=== PATIENT | female | born 1975 | race Caucasian/White ===

== ENCOUNTER 2017-12-13 18:51 | Emergency (ER) | payer BC ==
[2017-12-13] MEDS ORDERED: ASPIRIN 81 MG CHEWABLE TABLET PO ONE (19:10)
--- NOTE | 2017-12-13 19:19 | Emergency Department Record ---
History of Present Illness - General Chief complaint: Pain Stated complaint: LT SIDE RIB PAIN,NOT FEELING HERSELF Time Seen by Provider: 12/13/17 18:59 Source: Patient Mode of Arrival: Ambulatory Limitations: No limitations - History of Present Illness Initial comments: pt developed l lower chest pain that wraps around to her mumtaz and pain in her jaw 20 min ago. it was a 6 out of 10 but is now a 2. she had no sob or sweating but did have some nausea. time has made it better. she also had some reflux at the same time which she has a hx of. she has no cardiac risk factors andhas not been on a long trip Onset/Timin -: Minutes(s) Location: Left History of Same: No Improves with: Nothing Worsens with: Nothing Associated Symptoms: Denies other symptoms - Related Data Allergies Allergy/AdvReac Type Severity Reaction Status Date / Time hydromorphone HCl Allergy Severe ANAPHYLAXIS Verified 12/13/17 18:58 [From Dilaudid] morphine Allergy Severe ANAPHYLAXIS Verified 12/13/17 18:58 Travel Screening - Travel/Exposure Within Last 30 Days Have you traveled within the last 30 days?: No Review of Systems Reviewed: No additional complaints except as noted below Constitutional: Reports: As per HPI. Denies: Chills, Fever, Malaise, Night sweats, Weakness, Weight change Eyes: Reports: As per HPI. Denies: Eye discharge, Eye pain, Photophobia, Vision change ENT: Reports: As per HPI. Denies: Congestion, Dental pain, Ear pain, Epistaxis , Hearing loss, Throat pain Respiratory: Reports: As per HPI. Denies: Cough, Dyspnea, Hemoptysis, Stridor, Wheezes Cardiovascular: Reports: As per HPI, Chest pain. Denies: Arrhythmia, Dyspnea on exertion, Edema, Murmurs, Orthopnea, Palpitations, Paroxysmal nocturnal dyspnea, Rheumatic Fever, Syncope Endocrine: Reports: As per HPI. Denies: Fatigue, Heat or cold intolerance, Polydipsia, Polyuria Gastrointestinal: Reports: As per HPI, Nausea. Denies: Abdominal pain, Constipation, Diarrhea, Hematemesis, Hematochezia, Melena, Vomiting Genitourinary: Reports: As per HPI. Denies: Abnormal menses, Discharge, Dyspareunia, Dysuria, Frequency, Hematuria, Incontinence, Retention, Urgency Musculoskeletal: Reports: As per HPI. Denies: Arthralgia, Back pain, Gout, Joint swelling, Myalgia, Neck pain Skin: Reports: As per HPI. Denies: Bruising, Change in color, Change in hair/ nails, Lesions, Pruritus, Rash Neurological: Reports: As per HPI. Denies: Abnormal gait, Confusion, Headache, Numbness, Paresthesias, Seizure, Tingling, Tremors, Vertigo, Weakness Psychiatric: Reports: As per HPI. Denies: Anxiety, Auditory hallucinations, Depression, Homicidal thoughts, Suicidal thoughts, Visual hallucinations Hematological/Lymphatic: Reports: As per HPI. Denies: Anemia, Blood Clots, Easy bleeding, Easy bruising, Swollen glands Past Medical History - SOCIAL HISTORY Smoking Status: Never smoker Alcohol Use: Occasional Drug Use: None - RESPIRATORY Hx Respiratory Disorders: Yes Comment:: allergies - CARDIOVASCULAR Hx Cardio Disorders: No - NEURO Hx Neuro Disorders: No - GI Hx GI Disorders: Yes Comment:: Gallstones - Hx Genitourinary Disorders: No - ENDOCRINE Hx Endocrine Disorders: No - MUSCULOSKELETAL Hx Musculoskeletal Disorders: No - PSYCH Hx Psych Problems: Yes Comment:: PTSD - HEMATOLOGY/ONCOLOGY Hx Hematology/Oncology Disorders: No Family Medical History Any Significant Family History?: No Physical Exam - General General Appearance: Alert, Oriented x3, Cooperative, No acute distress - Head Head exam: Normal inspection - Eye Eye exam: Normal appearance, PERRL, EOMI Pupils: Normal accommodation - ENT ENT exam: Normal exam, Mucous membranes moist, Normal external ear exam, Normal orophraynx Ear exam: Normal external inspection. negative: External canal tenderness Nasal Exam: Normal inspection. negative: Discharge, Sinus tenderness Mouth exam: Normal external inspection, Tongue normal Teeth exam: Normal inspection. negative: Dental caries Throat exam: Normal inspection. negative: Tonsillar erythema, Tonsillar exudate - Neck Neck exam: Normal inspection, Full ROM. negative: Tenderness - Respiratory Respiratory exam: Normal lung sounds bilaterally. negative: Respiratory distress - Cardiovascular Cardiovascular Exam: Regular rate, Normal rhythm, Normal heart sounds - GI/Abdominal GI/Abdominal exam: Soft, Normal bowel sounds. negative: Tenderness - Rectal Rectal exam: Deferred - exam: Deferred - Extremities Extremities exam: Normal inspection, Full ROM, Normal capillary refill. negative: Tenderness - Back Back exam: Reports: Normal inspection, Full ROM. Denies: Muscle spasm, Rash noted, Tenderness - Neurological Neurological exam: Alert, CN II-XII intact, Normal gait, Oriented X3 - Psychiatric Psychiatric exam: Normal affect, Normal mood - Skin Skin exam: Dry, Intact, Normal color, Warm Course Vital Signs 12/13/17 18:54 Temperature 98.0 F Pulse Rate 67 Respiratory 20 Rate Blood Pressure 115/74 Pulse Ox 99 - Reevaluation(s) Reevaluation #1: 12/13/17 23:41 pts pain resolved. she felt much better. she refused to be admitted to the hospital but agreed to a 4 hr troponin Medical Decision Making - Lab Data Result diagrams: 12/13/17 19:20 12/13/17 19:20 Disposition Disposition: Discharge Clinical Impression: Chest pain Qualifiers: Chest pain type: unspecified Qualified Code(s): R07.9 - Chest pain, unspecified Disposition: Home, Self-Care Condition: (1) Good Instructions: Chest Pain (ED) Additional Instructions: follow up with family doctor tomorrow and have a stess test. return sooner if worse. take aspirin 81mg a day Forms: Patient Portal Access Quality - Quality Measures Quality Measures: N/A - Blood Pressure Screening Does Patient Have Any of the Following: No Blood Pressure Classification: Normal BP Reading Systolic Measurement: 115 Diastolic Measurement: 74 Screening for High Blood Pressure: < Normal BP, F/U Not Required > [G8783]
[2017-12-13 19:27] LABS: BASO % 0.3 % (0-6); EOS % 3.6 % (0-6); GRAN % 52.6 % (47-80); HEMATOCRIT 38.5 % (35.0-47.0); HEMOGLOBIN 12.6 gm/dl (11.6-16.0); LYMPH % 34.2 % (16-45); MEAN CELL VOLUME 93.2 fl (81-97); MEAN CORPUSCULAR HEMOGLOBIN 30.5 pg (27-33); MEAN CORPUSCULAR HGB CONC 32.7 g/dl (32-36); MEAN PLATELET VOLUME 9.3 fl (7.4-10.4); MONO % 9.3 % (0-9); PLATELET COUNT 254 K/uL (130-400); RED BLOOD COUNT 4.13 M/uL (3.80-5.40); RED CELL DISTRIBUTION WIDTH 13.1 % (11.5-14.5)
[2017-12-13 19:40] LABS: BLOOD UREA NITROGEN 13 mg/dL (6-20); CREATININE 0.8 mg/dL (0.5-0.9); EST GLOMERULAR FILTRATION RATE > 60 mL/min
[2017-12-13 19:43] LABS: GLUCOSE,RANDOM 100 mg/dL (74-109)
[2017-12-13 19:46] LABS: CREATINE PHOSPHOKINASE 140 U/L (26-192)
[2017-12-13 19:48] LABS: CKMB 5.3 ng/mL (<3.77)
--- NOTE | 2017-12-15 08:59 | CT ANGIOGRAM REPORT ---
EXAM: CTA OF THE CHEST WITH CONTRAST WITH POST PROCESSING HISTORY: CHEST PAIN, POSSIBLE PE. TECHNIQUE: CTA of the chest was performed following the intravenous administration of 66 ml of Omnipaque 350 as the IV contrast. Post processing on an independent workstation was performed with multiple 3D MIP series obtained. Comparison: No prior chest CT. Comparison is made with the two view chest x- ray of 10/13/14. FINDINGS: No definite PE identified. No thoracic aortic aneurysm or dissection is seen. No pleural or pericardial effusion evident. No definite hilar or mediastinal adenopathy seen. Postop cholecystectomy. No pneumothorax evident. No acute infiltrate identified. Mild thoracic curve to the right. IMPRESSION: 1. NO DEFINITE PE IDENTIFIED. 2. POSTOP CHOLECYSTECTOMY. 3. MILD THORACIC CURVE TO THE RIGHT. JOB NUMBER: [id number] MTDD
== END 2017-12-13 23:54 | disposition home or self-care (01) ==
LOC: ER 18:51
DX: R07.9 Chest pain, unspecified (principal); R11.0 Nausea; M54.9 Dorsalgia, unspecified; R68.84 Jaw pain
CPT/HCPCS: 99284 ×2; 82550; 85025; 82553; 80048; 84484; 85379; 71275; 93005; 93010; Q9967

== ENCOUNTER 2018-05-27 01:55 | Emergency (ER) | payer BC ==
[2018-05-27] MEDS ORDERED: ACETAMINOPHEN 325 MG TAB PO ONE (02:12)
--- NOTE | 2018-05-27 02:19 | Emergency Department Record ---
History of Present Illness - General Chief complaint: Head Injury Stated complaint: HEAD INJURY Time Seen by Provider: 05/27/18 02:08 Source: Patient Mode of Arrival: Ambulatory Limitations: No limitations - History of Present Illness Initial comments: The patient is here due to bumping her head on a metal door 10 hours ago and now having a persistent GONSALEZ. She had mild nausea at the time of the injury but that is gone now. There has been no neck pain, vomiting, confusion or balance issues. 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 She did sleep a lot after the injury because she felt it may help her GONSALEZ. Complaint: Head injury Onset/Timin -: Hour(s) Mechanism of Injury: Other Location: Parietal Loss of Consciousness: No Previous Trauma to this Area: No Place: Home Radiation: None Severity: Mild Severity scale (1-10): 7 Quality: Sharp Consistency: Constant Provoking factors: None known Other Injuries: None Associated Symptoms: Denies other symptoms - Related Data Home Medications Medication Instructions Recorded Confirmed Last Taken Venlafaxine HCl [Venlafaxine HCl 75 mg PO DAILY 05/27/18 05/27/18 Unknown ER] Allergies/Adverse reactions: Allergies Allergy/AdvReac Type Severity Reaction Status Date / Time hydromorphone HCl Allergy Severe ANAPHYLAXIS Verified 05/27/18 02:00 [From Dilaudid] morphine Allergy Severe ANAPHYLAXIS Verified 05/27/18 02:00 Travel Screening - Travel/Exposure Within Last 30 Days Have you traveled within the last 30 days?: No - Travel/Exposure Within Last Year Have you traveled outside the [place] in the last year?: No - Additonal Travel Details Have you been exposed to anyone with a communicable illness?: No - Travel Symptoms Symptom Screening: None Review of Systems Constitutional: Denies: Chills, Fever Eyes: Denies: Eye discharge ENT: Denies: Congestion Respiratory: Denies: Cough, Dyspnea Past Medical History - SOCIAL HISTORY Smoking Status: Never smoker Alcohol Use: Occasional Drug Use: None - RESPIRATORY Hx Respiratory Disorders: Yes Comment:: allergies - CARDIOVASCULAR Hx Cardio Disorders: Yes Hx Chest Pain: Yes Hx Deep Vein Thrombosis: No Comment:: high cholesterol is to follow up with - NEURO Hx Neuro Disorders: No Hx of Migraines: Yes (occular-occ) - GI Hx GI Disorders: Yes Hx Reflux: Yes Comment:: hx of Gallstones, dysphagia - Hx Genitourinary Disorders: No Comment:: uterine ablation - ENDOCRINE Hx Endocrine Disorders: No - MUSCULOSKELETAL Hx Musculoskeletal Disorders: Yes Comment:: new finding: slight scolisis - PSYCH Hx Psych Problems: Yes Comment:: PTSD - HEMATOLOGY/ONCOLOGY Hx Hematology/Oncology Disorders: No Family Medical History Any Significant Family History?: No Hx Cancer: Grandparents *Cancer Comment: breast and lung Hx Diabetes: Mother, Children Hx Resp Disorders: Grandparents *Resp Comment: lung cancer Hx Stroke: Grandparents Physical Exam - General General Appearance: Alert, Oriented x3, Cooperative, No acute distress - Head Head exam: Normocephalic. negative: Atraumatic (There is a very minor contustion measuring < 1cm in size to the R parietal area. ), Normal inspection Head exam detail: Contusion. negative: Abrasion - Eye Eye exam: Normal appearance, PERRL, EOMI - Neck Neck exam: Normal inspection, Full ROM. negative: Tenderness - Respiratory Respiratory exam: Normal lung sounds bilaterally. negative: Respiratory distress - Cardiovascular Cardiovascular Exam: Regular rate, Normal rhythm, Normal heart sounds - Extremities Extremities exam: Normal inspection, Full ROM, Normal capillary refill. negative: Tenderness - Neurological Neurological exam: Alert, Normal gait, Oriented X3, Reflexes normal, Other (Neg Drift and Rhomberg.). negative: Abnormal gait, Motor sensory deficit - Psychiatric Psychiatric exam: negative: Anxious Course Vital Signs 05/27/18 05/27/18 02:00 02:03 Temperature 97.9 F 97.9 F Pulse Rate [ 81 Pulse Ox Probe] Respiratory 24 24 Rate Blood Pressure 109/75 [Left Arm] Pulse Ox 97 97 - Reevaluation(s) Reevaluation #1: The patient is doing OK at this time and still does have a GONSALEZ. I did discuss the CT results with the patient and the need for follow up with her PCP later this week. With the CT being normal and the patient's neuro exam completely normal I do feel it is stable to discharge the patient. She is to use Tylenol for pain and is to return to the ER for any worsening symptoms. 05/27/18 02:55 Medical Decision Making - Data Complexity MDM Data: X-Ray Ordered and/or Reviewed (Head CT: Neg for any acute changes.) Disposition Disposition: Discharge Clinical Impression: Head injury due to trauma Qualifiers: Encounter type: initial encounter Qualified Code(s): S09.90XA - Unspecified injury of head, initial encounter Disposition: Home, Self-Care Condition: (2) Stable Instructions: Head Injury (ED) Additional Instructions: Please take Tylenol for pain and rest. Please see your family doctor for recheck in 2-3 days if not better. Return to the ER for any worsening symptoms of pain, or any vomiting or confusion. Forms: Patient Portal Access Time of Disposition: 02:58 Quality - Quality Measures Quality Measures: Blunt Head Trauma (>2yr) - Roper Coma Scale Roper Coma Scale: Roper Coma Scale Eye Response: (4) Open spontaneously Motor Response: (6) Obeys commands Verbal Response: (5) Oriented Tamara Total: 15 - Blunt Head Trauma - Adult Quality Measure: Measure #415: Utilization of CT for Minor Blunt Head Trauma ICD10 Codes Entered: Yes View Details: Yes Was CT ordered: Yes Does Patient Have Any of the Following: No Exclusions Patient Presented Within 24 Hours of Injury: Yes Tamara Score: [address] for Minor Blunt Head Trauma: < CT Done, Appropriate Indication > [G9529] Additional Inclusion Criteria: Within 24hrs (AND) GCS of 15 (AND) CT ordered. [ G9530] Indications For CT: Severe Headache - Blood Pressure Screening View Details: Yes Does Patient Have Any of the Following: No Blood Pressure Classification: Normal BP Reading Systolic Measurement: 109 Diastolic Measurement: 75 Screening for High Blood Pressure: < Normal BP, F/U Not Required > [G8783]
--- NOTE | 2018-05-28 07:29 | CT SCAN REPORT ---
EXAM: CT OF THE BRAIN WITHOUT CONTRAST HISTORY: INJURY. TECHNIQUE: Sequential axial images were obtained from the foramen magnum to the vertex without contrast administration. FINDINGS: The brain volume is normal. No large territorial infarct, hemorrhage , mass effect or midline shift. No extraaxial fluid collection. There is a mucosal retention cyst and/or polyp in the left maxillary sinus. The remainder of the paranasal sinuses are well aerated. IMPRESSION: 1. NO ACUTE INTRACRANIAL ABNORMALITY IS APPRECIATED. 2. MUCOSAL RETENTION CYST AND/OR POLYP IN THE LEFT MAXILLARY SINUS. JOB NUMBER: [id number] MTDD
== END 2018-05-27 03:08 | disposition home or self-care (01) ==
LOC: ER 01:55
DX: S09.90XA Unspecified injury of head, initial encounter (principal); R51 Headache; W22.8XXA Striking against or struck by other objects, initial encounter; Y92.009 Unspecified place in unspecified non-institutional (private) residence as the place of occurrence of the external cause
CPT/HCPCS: 70450; 99283

== ENCOUNTER 2019-07-07 17:23 | Emergency (ER) | payer BC ==
--- NOTE | 2019-07-07 17:35 | Emergency Department Record ---
History of Present Illness - General Stated Complaint: LT INDEX INFECTION Time Seen by Provider: 07/07/19 17:25 Source: Patient Mode of Arrival: Ambulatory Limitations: No limitations - History of Present Illness Initial Comments: 44 yo female presents to ED for re-evaluation following a ct bite to the left index finger that occurred several days ago. Patient reports that she was seen and treated at the [facility], started on Augmentin, and discharged home with instructions for warm soaks. Patient reports that her cat's tooth traveled through her left index finger nail resulting in injury. Patient was told to return to ED for evaluation of her pain symptoms worsened. Patient denies health problems at her baseline. MD Complaint: Injury to:: Left Onset/Timin -: Days(s) Other Extremity Injury: Fingers: Left Other Injuries: None Place: Home Worsens With: Other (Pressure applied to the digit) Context: Animal bite Associated Symptoms: Denies other symptoms - Related Data Allergies Allergy/AdvReac Type Severity Reaction Status Date / Time hydromorphone HCl Allergy Severe ANAPHYLAXIS Unverified 07/02/19 11:53 [From Dilaudid] morphine Allergy Severe ANAPHYLAXIS Unverified 07/02/19 11:53 Review of Systems Constitutional: Denies: Chills, Fever, Malaise, Night sweats Eyes: Denies: Eye discharge, Eye pain ENT: Denies: Congestion, Ear pain, Epistaxis Respiratory: Denies: Cough, Dyspnea Cardiovascular: Denies: Chest pain, Dyspnea on exertion Endocrine: Denies: Fatigue, Heat or cold intolerance Gastrointestinal: Denies: Abdominal pain, Nausea, Vomiting Genitourinary: Denies: Incontinence, Retention Musculoskeletal: Denies: Arthralgia, Back pain Skin: Denies: Bruising, Change in color Neurological: Denies: Abnormal gait, Confusion, Headache, Tingling, Tremors Psychiatric: Denies: Anxiety Hematological/Lymphatic: Denies: Anemia, Blood Clots Past Medical History - SOCIAL HISTORY Smoking Status: Never smoker Drug Use: None - RESPIRATORY Hx Respiratory Disorders: Yes Comment:: allergies - CARDIOVASCULAR Hx Cardio Disorders: Yes Hx Chest Pain: Yes Hx Deep Vein Thrombosis: No Comment:: high cholesterol is to follow up with - NEURO Hx Neuro Disorders: No Hx of Migraines: Yes (occular-occ) - GI Hx GI Disorders: Yes Hx Reflux: Yes Comment:: hx of Gallstones, dysphagia - Hx Genitourinary Disorders: No Comment:: uterine ablation - ENDOCRINE Hx Endocrine Disorders: No - MUSCULOSKELETAL Hx Musculoskeletal Disorders: Yes Comment:: new finding: slight scolisis - PSYCH Hx Psych Problems: Yes Comment:: PTSD - HEMATOLOGY/ONCOLOGY Hx Hematology/Oncology Disorders: No Family Medical History Hx Cancer: Grandparents *Cancer Comment: breast and lung Hx Diabetes: Mother, Children Hx Resp Disorders: Grandparents *Resp Comment: lung cancer Hx Stroke: Grandparents Physical Exam - General General Appearance: Alert, Oriented x3, Cooperative, No acute distress Limitations: No limitations - Head Head exam: Atraumatic, Normocephalic, Normal inspection Head exam detail: negative: Abrasion, Contusion, Mejia's sign, General tenderness, Hematoma, Laceration - Eye Eye exam: Normal appearance. negative: Conjunctival injection, Periorbital swelling, Periorbital tenderness, Scleral icterus - ENT Ear exam: negative: Auricular hematoma, Auricular trauma Nasal Exam: negative: Active bleeding, Discharge, Dried blood, Foreign body Mouth exam: negative: Drooling, Laceration, Muffled voice, Tongue elevation - Neck Neck exam: Normal inspection. negative: Meningismus, Tenderness - Respiratory Respiratory exam: Normal lung sounds bilaterally. negative: Respiratory distress, Rhonchi, Stridor, Wheezes - Cardiovascular Cardiovascular Exam: Regular rate, Normal rhythm, Normal heart sounds - GI/Abdominal GI/Abdominal exam: Soft. negative: Distended, Rebound, Rigid, Tenderness - Rectal Rectal exam: Deferred - exam: Deferred - Extremities Extremities exam: Tenderness, Other (Mild TTP over the nailbed of the left index finger. No erythema is present, no paronychia, and no felon is present. Tuft is soft on examination, no evidence for abscess is present on examination.). negative: Calf tenderness, Pedal edema - Back Back exam: Denies: CVA tenderness (R), CVA tenderness (L) - Neurological Neurological exam: Alert, Normal gait, Oriented X3 - Psychiatric Psychiatric exam: Normal affect, Normal mood - Skin Skin exam: Normal color. negative: Abrasion Type of lesion: negative: abrasion Course - Reevaluation(s) Reevaluation #1: 07/07/19 17:39 Patient was seen and examined No evidence for paronychia, felon, or subungal abscess is present on examination. Counseled the patient that the finger nail could be removed if she was still concerned about infection below her finger nail, patient declined. Patient was counseled to continue warm soaks, Augmentin as prescribed. Patient reports that the cat is being watched and that her tetanus is UTD. Patient appears stable for discharge at this time. Disposition Disposition: Discharge Clinical Impression: Cat bite of index finger Qualifiers: Encounter type: subsequent encounter Qualified Code(s): S61.258D - Open bite of other finger without damage to nail, subsequent encounter Disposition: Home, Self-Care Condition: (2) Stable Instructions: Animal Bite (ED) Additional Instructions: Return to ED if your symptoms worsen or if you have any concerns. Continue warm soaks, Augmentin as previously prescribed. Follow-up with your family doctor in 3-5 days as directed. Forms: Patient Portal Access Time of Disposition: 17:35 Quality - Quality Measures Quality Measures: N/A - Blood Pressure Screening Does Patient Have Any of the Following: No Blood Pressure Classification: Normal BP Reading Systolic Measurement: 107 Diastolic Measurement: 58 Screening for High Blood Pressure: < Normal BP, F/U Not Required > [G8783]
== END 2019-07-07 17:45 | disposition home or self-care (01) ==
LOC: ER 17:23
DX: S61.258A Open bite of other finger without damage to nail, initial encounter (principal); W55.01XA Bitten by cat, initial encounter
CPT/HCPCS: 99282

== ENCOUNTER 2019-07-12 13:02 | Inpatient (IN) | payer BC ==
[2019-07-12] MEDS ORDERED: CLINDAMYCIN IVPB ONE (13:53)
[2019-07-12] MEDS ORDERED: SODIUM CHLORIDE 0.9% IVPB ONE (13:53)
[2019-07-12] MEDS ORDERED: TMP/SMZ 160MG/800MG TAB PO ONE (13:56)
[2019-07-12 14:36] LABS: ABSOLUTE NEUTROPHIL COUNT 8.04; BASO % 0.2 % (0-6); HEMATOCRIT 42.4 % (35.0-47.0); HEMOGLOBIN 14.2 gm/dl (11.6-16.0); LYMPH % 20.2 % (16-45); MEAN CELL VOLUME 93.6 fl (81-97); MEAN CORPUSCULAR HEMOGLOBIN 31.3 pg (27-33); MEAN CORPUSCULAR HGB CONC 33.5 g/dl (32-36); MEAN PLATELET VOLUME 9.2 fl (7.4-10.4); MONO % 5.6 % (0-9); PLATELET COUNT 290 K/uL (130-400); RED BLOOD COUNT 4.53 M/uL (3.80-5.40)
--- NOTE | 2019-07-12 14:38 | RADIOLOGY REPORT ---
EXAMINATION: Right Hand, Minimum Three Views EXAM DATE: 07/12/2019 2:21 PM TECHNIQUE: PA, lateral, and oblique INDICATION: infection COMPARISON: None ENCOUNTER: Initial FINDINGS: No acute fracture or dislocation. Joint spaces are maintained. No radiopaque foreign body. Soft tissu e swelling seen along the dorsum of the metacarpals as well as at the level of the third metacarpal p halangeal joint. IMPRESSION: Soft tissue swelling. No acute bony injury identified Dictated by: Rocco Crabtree MD on 07/12/2019 2:34 PM. .
[2019-07-12 15:45] LABS: URINE APPEARANCE CLEAR; URINE BILIRUBIN NEGATIVE (NEGATIVE); URINE BLOOD TRACE-I (NEGATIVE); URINE COLOR YELLOW; URINE GLUCOSE (UA) NEGATIVE (NEGATIVE); URINE KETONE NEGATIVE (NEGATIVE); URINE LEUKOCYTE ESTERASE NEGATIVE (NEGATIVE); URINE NITRITE NEGATIVE (NEGATIVE); URINE PROTEIN NEGATIVE (NEGATIVE); URINE UROBILINOGEN 0.2 E.U./dL (0.20 - 1.00)
[2019-07-12 15:54] LABS: URINE BACTERIA NONE SEEN; URINE EPITHELIAL CELLS 0 - 2 (FEW); URINE RBC 0 - 2 (NONE SEEN); URINE WBC NONE SEEN (0-2/hpf)
[2019-07-12] MEDS ORDERED: VANCOMYCIN 1GM/200ML PREMIX 1 GM/200 ML PIGGYBACK IVPB SCH (16:15)
[2019-07-12 16:19] LABS: BLOOD UREA NITROGEN 15 mg/dL (6-20); CREATININE 0.9 mg/dL (0.5-0.9); EST GLOMERULAR FILTRATION RATE > 60 mL/min
[2019-07-12 16:22] LABS: GLUCOSE,RANDOM 123 mg/dL (74-109)
[2019-07-12] MEDS ORDERED: VANCOMYCIN 1GM/200ML PREMIX 1 GM/200 ML PIGGYBACK IVPB ONE (16:22)
[2019-07-12] MEDS ORDERED: HYDROCODONE/APAP 5/325MG TABLET PO ONE (16:44)
--- NOTE | 2019-07-12 17:35 | Emergency Department Record ---
History of Present Illness - General Chief Complaint: Animal Bite Stated Complaint: CAT BITE Time Seen by Provider: 07/12/19 13:45 Source: Patient Mode of Arrival: Ambulatory Limitations: No limitations - History of Present Illness Initial Comments: pt was bitten by a cat at 10pm last night and has swelling and redness and pain of her r hand. she is already on augmentin for a previous cat bite. she rescues cats. Complaint: Animal bite Onset/Timin -: Days(s) Right: Hand Animal: Cat Description: Household pet Mechanism: Bite Pain Description: Sharp Severity scale (1-10): 7 Context: Unprovoked Associated Symptoms: None - Related Data Allergies Allergy/AdvReac Type Severity Reaction Status Date / Time hydromorphone HCl Allergy Severe ANAPHYLAXIS Unverified 07/12/19 12:27 [From Dilaudid] morphine Allergy Severe ANAPHYLAXIS Unverified 07/12/19 12:27 Travel Screening - Travel/Exposure Within Last 30 Days Have you traveled within the last 30 days?: No Review of Systems Reviewed: No additional complaints except as noted below Constitutional: Reports: As per HPI. Denies: Chills, Fever, Malaise, Night sweats, Weakness, Weight change Eyes: Reports: As per HPI. Denies: Eye discharge, Eye pain, Photophobia, Vision change ENT: Reports: As per HPI. Denies: Congestion, Dental pain, Ear pain, Epistaxis, Hearing loss, Throat pain Respiratory: Reports: As per HPI. Denies: Cough, Dyspnea, Hemoptysis, Stridor, Wheezes Cardiovascular: Reports: As per HPI. Denies: Arrhythmia, Chest pain, Dyspnea on exertion, Edema, Murmurs, Orthopnea, Palpitations, Paroxysmal nocturnal dyspnea, Rheumatic Fever, Syncope Endocrine: Reports: As per HPI. Denies: Fatigue, Heat or cold intolerance, Polydipsia, Polyuria Gastrointestinal: Reports: As per HPI. Denies: Abdominal pain, Constipation, Diarrhea, Hematemesis, Hematochezia, Melena, Nausea, Vomiting Genitourinary: Reports: As per HPI. Denies: Abnormal menses, Discharge, Dyspareunia, Dysuria, Frequency, Hematuria, Incontinence, Retention, Urgency Musculoskeletal: Reports: As per HPI. Denies: Arthralgia, Back pain, Gout, Joint swelling, Myalgia, Neck pain Skin: Reports: As per HPI. Denies: Bruising, Change in color, Change in [place]/nails, Lesions, Pruritus, Rash Neurological: Reports: As per HPI. Denies: Abnormal gait, Confusion, Headache, Numbness, Paresthesias, Seizure, Tingling, Tremors, Vertigo, Weakness Psychiatric: Reports: As per HPI. Denies: Anxiety, Auditory hallucinations, Depression, Homicidal thoughts, Suicidal thoughts, Visual hallucinations Hematological/Lymphatic: Reports: As per HPI. Denies: Anemia, Blood Clots, Easy bleeding, Easy bruising, Swollen glands Past Medical History - SOCIAL HISTORY Smoking Status: Never smoker - RESPIRATORY Hx Respiratory Disorders: Yes Comment:: allergies - CARDIOVASCULAR Hx Cardio Disorders: Yes Hx Chest Pain: Yes Hx Deep Vein Thrombosis: No Comment:: high cholesterol is to follow up with - NEURO Hx Neuro Disorders: No Hx of Migraines: Yes (occular-occ) - GI Hx GI Disorders: Yes Hx Reflux: Yes Comment:: hx of Gallstones, dysphagia - Hx Genitourinary Disorders: No Comment:: uterine ablation - ENDOCRINE Hx Endocrine Disorders: No - MUSCULOSKELETAL Hx Musculoskeletal Disorders: Yes Comment:: new finding: slight scolisis - PSYCH Hx Psych Problems: Yes Comment:: PTSD - HEMATOLOGY/ONCOLOGY Hx Hematology/Oncology Disorders: No Family Medical History Any Significant Family History?: Yes Hx Cancer: Grandparents *Cancer Comment: breast and lung Hx Diabetes: Mother, Children Hx Resp Disorders: Grandparents *Resp Comment: lung cancer Hx Stroke: Grandparents Physical Exam - General General Appearance: Alert, Oriented x3, Cooperative, Mild distress - Head Head exam: Normal inspection - Eye Eye exam: Normal appearance, PERRL, EOMI Pupils: Normal accommodation - ENT ENT exam: Normal exam, Mucous membranes moist, Normal external ear exam, Normal orophraynx Ear exam: Normal external inspection. negative: External canal tenderness Nasal Exam: Normal inspection. negative: Discharge, Sinus tenderness Mouth exam: Normal external inspection, Tongue normal Teeth exam: Normal inspection. negative: Dental caries Throat exam: Normal inspection. negative: Tonsillar erythema, Tonsillar exudate - Neck Neck exam: Normal inspection, Full ROM. negative: Tenderness - Respiratory Respiratory exam: Normal lung sounds bilaterally. negative: Respiratory distress - Cardiovascular Cardiovascular Exam: Regular rate, Normal rhythm, Normal heart sounds - GI/Abdominal GI/Abdominal exam: Soft, Normal bowel sounds. negative: Tenderness - Rectal Rectal exam: Deferred - exam: Deferred - Extremities Extremities exam: Normal capillary refill, Tenderness, Other (pt unable tofully flex fingers.). negative: Full ROM Image of Hand: 1 - swelling, erythema, tender. 2 - puncture wounds - Back Back exam: Reports: Normal inspection, Full ROM. Denies: Muscle spasm, Rash noted, Tenderness - Neurological Neurological exam: Alert, CN II-XII intact, Normal gait, Oriented X3 - Psychiatric Psychiatric exam: Normal affect, Normal mood - Skin Skin exam: Dry, Intact, Normal color, Warm Course Vital Signs 07/12/19 13:21 Temperature 98.1 F Pulse Rate 77 Respiratory 18 Rate Blood Pressure 108/74 Pulse Ox 98 - Reevaluation(s) Reevaluation #1: 07/12/19 17:43 d/w dr flynn as well as picture sent. he states iv abx over night and transfer if not getting better. he recommened vanco. pt given vanco but started itching Medical Decision Making - Lab Data Result diagrams: 07/12/19 14:24 07/12/19 14:24 Lab Results 07/12/19 07/12/19 07/12/19 Range/Units 14:24 14:24 15:30 WBC 11.0 (4.2-12.2) K/uL RBC 4.53 (3.80-5.40) M/uL Hgb 14.2 (11.6-16.0) gm/dl Hct 42.4 (35.0-47.0) % MCV 93.6 (81-97) fl MCH 31.3 (27-33) pg MCHC 33.5 (32-36) g/dl RDW 13.0 (11.5-14.5) % Plt Count 290 (130-400) K/uL MPV 9.2 (7.4-10.4) fl Gran % 73.0 (47-80) % Lymphocytes % 20.2 (16-45) % Monocytes % 5.6 (0-9) % Eosinophils % 1.0 (0-6) % Basophils % 0.2 (0-6) % Absolute Neutrophils 8.04 Sodium 138 (136-145) mmol/L Potassium 3.8 (3.4-4.5) mmol/L Chloride 100 (98-107) mmol/L Carbon Dioxide 25.0 (22-29) mmol/L Anion Gap 13.0 (7-16) BUN 15 (6-20) mg/dL Creatinine 0.9 (0.5-0.9) mg/dL Estimated GFR > 60 mL/min Random Glucose 123 H (74-109) mg/dL Calcium 9.7 (8.6-10.0) mg/dL Urine Color Yellow Urine Appearance Clear Urine pH 6.0 (5.0-8.0) Ur Specific [place] <= 1.005 (1.002-1.030) Urine Protein Negative (NEGATIVE) Urine Glucose (UA) Negative (NEGATIVE) Urine Ketones Negative (NEGATIVE) Urine Blood Trace-i (NEGATIVE) Urine Nitrite Negative (NEGATIVE) Urine Bilirubin Negative (NEGATIVE) Urine Urobilinogen 0.2 (0.20 - 1.00) E.U./dL Ur Leukocyte Esterase Negative (NEGATIVE) Urine RBC 0 - 2 (NONE SEEN) Urine WBC None seen (0-2/hpf) Ur Epithelial Cells 0 - 2 (FEW) Urine Bacteria None seen Disposition Disposition: Admit Clinical Impression: Flexor tenosynovitis of finger Cat bite of right hand with infection Qualifiers: Encounter type: initial encounter Qualified Code(s): S61.451A - Open bite of right hand, initial encounter; L08.9 - Local infection of the skin and subcutaneous tissue, unspecified; W55.01XA - Bitten by cat, initial encounter Disposition: Still a Patient at [facility] Decision to Admit: Admit from ER Decision to Admit Date: 07/12/19 Decision to Admit Time: 17:46 Forms: Patient Portal Access Quality - Quality Measures Quality Measures: N/A - Blood Pressure Screening Does Patient Have Any of the Following: No Blood Pressure Classification: Normal BP Reading Systolic Measurement: 108 Diastolic Measurement: 74 Screening for High Blood Pressure: < Normal BP, F/U Not Required > [G8783]
[2019-07-12] MEDS ORDERED: HYDROCODONE/APAP 5/325MG TABLET PO PRN (18:39)
[2019-07-12] MEDS ORDERED: ACETAMINOPHEN 325 MG TAB PO PRN (18:39)
[2019-07-12] MEDS: 0.9 % SODIUM CHLORIDE 1000ML 1,000 ML IV PRN (19:15)
[2019-07-12] MEDS: ZYVOX (LINEZOLID) 600MG/300 ML 600 MG/300 ML BAG IVPB SCH (19:15)
[2019-07-12] MEDS: VENLAFAXINE ER 37.5 MG CAPSULE PO SCH (22:27)
[2019-07-13] MEDS ORDERED: VANCOMYCIN 1GM/200ML PREMIX 1 GM/200 ML PIGGYBACK IVPB SCH (06:00)
[2019-07-13 06:28] LABS: ABSOLUTE NEUTROPHIL COUNT 5.16; BASO % 0.3 % (0-6); EOS % 1.3 % (0-6); GRAN % 67.2 % (47-80); HEMATOCRIT 38.3 % (35.0-47.0); HEMOGLOBIN 12.7 gm/dl (11.6-16.0); LYMPH % 24.6 % (16-45); MEAN CELL VOLUME 93.6 fl (81-97); MEAN CORPUSCULAR HEMOGLOBIN 31.1 pg (27-33); MEAN CORPUSCULAR HGB CONC 33.2 g/dl (32-36); MEAN PLATELET VOLUME 9.1 fl (7.4-10.4); MONO % 6.6 % (0-9); PLATELET COUNT 240 K/uL (130-400); RED BLOOD COUNT 4.09 M/uL (3.80-5.40); RED CELL DISTRIBUTION WIDTH 12.9 % (11.5-14.5); WHITE BLOOD COUNT W/O DIFF 7.7 K/uL (4.2-12.2)
[2019-07-13 06:43] LABS: BLOOD UREA NITROGEN 12 mg/dL (6-20); CREATININE 0.9 mg/dL (0.5-0.9); EST GLOMERULAR FILTRATION RATE > 60 mL/min; GLUCOSE,RANDOM 120 mg/dL (74-109)
[2019-07-13] MEDS: 0.9 % SODIUM CHLORIDE 1000ML 1,000 ML IV PRN ×2 (07:41→17:43)
[2019-07-13] MEDS: ZYVOX (LINEZOLID) 600MG/300 ML 600 MG/300 ML BAG IVPB SCH ×2 (07:52→19:51)
[2019-07-13] MEDS ORDERED: KETOROLAC 30 MG/ML VIAL IVP PRN (08:39)
--- NOTE | 2019-07-13 08:44 | History & Physical ---
History of Present Illness - Date of Service Date of Service for History & Physical: 07/13/19 - History of Present Illness Admitting Diagnosis: flexor tenosynovitis, cat bite infection History of Present Illness: 07/13/19: Pt presented to ER 07/12/19 for cat bite to right middle finger/hand. 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 Patient experiencing symptoms of infection despite PO antibiotic therapy and came in for evaluation. Dr Whitaker discussed case with Dr Durand at [facility] and his recommendation was IV Vanco to cover possibility of MRSA, if no clinical improvement or worsening call him for consult and possible transfer to [facility] for surgery. Borders of erythema/swelling drawn with skin marker to hand. PCP: Parul Dennis ED Course: Vital Signs Temp Pulse Pulse Resp BP BP BP 07/13/19 07:45 98.1 F 76 16 90/56 07/13/19 05:53 97.9 F 56 L 16 112/42 07/12/19 22:00 97.8 F 70 16 116/66 07/12/19 18:05 98.1 F 64 16 108/64 07/12/19 13:21 98.1 F 77 18 108/74 Pulse Ox 07/13/19 07:45 98 07/13/19 05:53 95 07/12/19 22:00 70 L 07/12/19 18:05 98 07/12/19 13:21 98 Intake & Output 07/11/19 07/12/19 07/13/19 07/14/19 06:59 06:59 06:59 06:59 Intake Total 1604 Balance 1604 Weight 186 lb 8 oz Intake: IV 1604 Oral 0 Other: Weight Measurement Method Standing Scale Laboratory 07/14/19 07/13/19 07/13/19 05:30 06:05 06:05 WBC 7.7 RBC 4.09 Hgb 12.7 Hct 38.3 MCV 93.6 MCH 31.1 MCHC 33.2 RDW 12.9 Plt Count 240 MPV 9.1 Gran % 67.2 Lymphocytes % 24.6 Monocytes % 6.6 Eosinophils % 1.3 Basophils % 0.3 Absolute Neutrophils 5.16 Sodium 141 Potassium 4.0 Chloride 108 H Carbon Dioxide 22.0 Anion Gap 11.0 BUN 12 Creatinine 0.9 Estimated GFR > 60 Random Glucose 120 H Calcium 8.8 Urine Color Urine Appearance Urine pH Ur Specific [place] Urine Protein Urine Glucose (UA) Urine Ketones Urine Blood Urine Nitrite Urine Bilirubin Urine Urobilinogen Ur Leukocyte Esterase Urine RBC Urine WBC Ur Epithelial Cells Urine Bacteria Vancomycin Trough Cancelled 07/12/19 07/12/19 07/12/19 15:30 14:24 14:24 WBC 11.0 RBC 4.53 Hgb 14.2 Hct 42.4 MCV 93.6 MCH 31.3 MCHC 33.5 RDW 13.0 Plt Count 290 MPV 9.2 Gran % 73.0 Lymphocytes % 20.2 Monocytes % 5.6 Eosinophils % 1.0 Basophils % 0.2 Absolute Neutrophils 8.04 Sodium 138 Potassium 3.8 Chloride 100 Carbon Dioxide 25.0 Anion Gap 13.0 BUN 15 Creatinine 0.9 Estimated GFR > 60 Random Glucose 123 H Calcium 9.7 Urine Color Yellow Urine Appearance Clear Urine pH 6.0 Ur Specific [place] <= 1.005 Urine Protein Negative Urine Glucose (UA) Negative Urine Ketones Negative Urine Blood Trace-i Urine Nitrite Negative Urine Bilirubin Negative Urine Urobilinogen 0.2 Ur Leukocyte Esterase Negative Urine RBC 0 - 2 Urine WBC None seen Ur Epithelial Cells 0 - 2 Urine Bacteria None seen Vancomycin Trough Past Surgical History Date/Surgery appendectomy 2014 nose surgery uterine ablation gallbladder EGD with dil Past Medical History Hx Respiratory Disorders Yes Comment: allergies Hx Cardiovascular Disorders Yes Hx Chest Pain Yes Hx Deep Vein Thrombosis No Comment: high cholesterol is to follow up with dr. Mahoney Neurological Disorders No Hx of Migraines Yes: occular-occ Hx Gastrointestinal Disorders Yes Hx Gastroesophageal Reflux Yes Comment: hx of Gallstones, dysphagia Hx Genitourinary Disorders No Comment: uterine ablation Hx Endocrine Disorders No Hx of Immunosuppressed Yes: see comment Hx Musculoskeletal Disorders Yes Comment: new finding: slight scolisis Hx Psychiatric Problems Yes Comment: PTSD Hx Hematology/Oncology Disorders No History of multi drug resistant No infection History of exposure to TB No History of positive TB test No History of C-Difficile No Comment sjogrens syndrome Hx Influenza Vaccination No Smoking Status Smoking Status Never smoker Family Medical History Any Significant Family Hx? Yes Hx Cancer Grandparents * Cancer Comment: breast and lung Hx Diabetes Mother,Children Hx. Respiratory Disorders Grandparents * Respiratory Disorders Comment: lung cancer Hx Stroke Grandparents Skin Risk Assessment Scale Sensory Perception No Impairment Moisture Risk Rarely Moist Activity Risk Walks Frequently Mobility Risk No Limitations Nutrition Risk Excellent Friction & Shear Risk No Apparent Problem Skin Risk Total Score (points) 23 Skin Risk Evaluation No Risk Wound Present on Admission Wound present upon admission? Yes Medications Hydrocodone Bitart/Acetaminophen ([place] 5mg/325mg) 1 each PO Q6H PRN PRN Reason: PAIN - MOD TO SEVERE (5-10) Linezolid (Zyvox) 600 mg in 300 mls @ 300 mls/hr IVPB Q12H AMNA Acetaminophen (Ofirmev) 1,000 mg in 100 mls @ 400 mls/hr IVPB Q6H AMNA Sodium Chloride () 1,000 mls @ 125 mls/hr IV .Q8H PRN Ketorolac Tromethamine (Toradol) 30 mg IVP Q8H PRN PRN Reason: PAIN - MILD TO MODERATE (1-7) Venlafaxine HCl (Effexor Xr) 37.5 mg PO BID AMNA Problems Cat bite of right hand with infection (Acute) S61.451A, L08.9, W55.01XA Flexor tenosynovitis 07/13/19: Patient awake and using cell phone upon entry to room. Patient A&Ox4. Patient reports improvement since yesterday. She is able to touch finger tips to thumb, but still cannot make a fist with the right hand. Denies numbness/tingling. Cap refill WNL. Remains afebrile and WBC WNL still. Erythema does not extend past the skin marker borders and the erythema is receding at the proximal line drawn. Patient will be changed to regular diet and we will keep her through at least tomorrow for further IV antibiotics and monitoring of the wound. Patient agreeable to POC and all questions answered. Travel Screening - Travel/Exposure Within Last 30 Days Have you traveled within the last 30 days?: No - Travel/Exposure Within Last Year Have you traveled outside the [place] in the last year?: No - Additonal Travel Details Have you been exposed to anyone with a communicable illness?: No - Travel Symptoms Symptom Screening: None Review of Systems Constitutional: Reports: As per HPI. Denies: Chills, Fever, Malaise, Night sweats, Weakness, Weight change Eyes: Reports: As per HPI. Denies: Eye discharge, Eye pain, Photophobia, Vision change ENT: Reports: As per HPI. Denies: Congestion, Dental pain, Ear pain, Epistaxis, Hearing loss, Throat pain Respiratory: Reports: As per HPI. Denies: Cough, Dyspnea, Hemoptysis, Stridor, Wheezes Cardiovascular: Reports: As per HPI. Denies: Arrhythmia, Chest pain, Dyspnea on exertion, Edema, Murmurs, Orthopnea, Palpitations, Paroxysmal nocturnal dyspnea, Rheumatic Fever, Syncope Endocrine: Reports: As per HPI. Denies: Fatigue, Heat or cold intolerance, Polydipsia, Polyuria Gastrointestinal: Reports: As per HPI. Denies: Abdominal pain, Constipation, Diarrhea, Hematemesis, Hematochezia, Melena, Nausea, Vomiting Genitourinary: Reports: As per HPI. Denies: Abnormal menses, Discharge, Dyspareunia, Dysuria, Frequency, Hematuria, Incontinence, Retention, Urgency Musculoskeletal: Reports: As per HPI. Denies: Arthralgia, Back pain, Gout, Joint swelling, Myalgia, Neck pain Skin: Reports: As per HPI. Denies: Bruising, Change in color, Change in hair/nails, Lesions, Pruritus, Rash Neurological: Reports: As per HPI. Denies: Abnormal gait, Confusion, Headache, Numbness, Paresthesias, Seizure, Tingling, Tremors, Vertigo, Weakness Psychiatric: Reports: As per HPI. Denies: Anxiety, Auditory hallucinations, Depression, Homicidal thoughts, Suicidal thoughts, Visual hallucinations Hematological/Lymphatic: Reports: As per HPI. Denies: Anemia, Blood Clots, Easy bleeding, Easy bruising, Swollen glands Past Medical History - SOCIAL HISTORY Smoking Status: Never smoker Alcohol Use: None Drug Use: None - RESPIRATORY Hx Respiratory Disorders: Yes Hx Asthma: Yes Comment:: allergies - CARDIOVASCULAR Hx Cardio Disorders: Yes Hx Chest Pain: Yes Hx Deep Vein Thrombosis: No Comment:: high cholesterol is to follow up with drAdriane - NEURO Hx Neuro Disorders: No Hx of Migraines: Yes (occular-occ) - GI Hx GI Disorders: Yes Hx Reflux: Yes Comment:: hx of Gallstones, dysphagia - Hx Genitourinary Disorders: No Comment:: uterine ablation - ENDOCRINE Hx Endocrine Disorders: No - MUSCULOSKELETAL Hx Musculoskeletal Disorders: Yes Comment:: new finding: slight scolisis - PSYCH Hx Psych Problems: Yes Comment:: PTSD - HEMATOLOGY/ONCOLOGY Hx Hematology/Oncology Disorders: No Family Medical History Any Significant Family History?: Yes Hx Cancer: Grandparents *Cancer Comment: breast and lung Hx Diabetes: Mother, Children Hx Resp Disorders: Grandparents *Resp Comment: lung cancer Hx Stroke: Grandparents H&P Meds/Allergies - Allergies Allergies: Allergies Allergy/AdvReac Type Severity Reaction Status Date / Time hydromorphone HCl Allergy Severe ANAPHYLAXIS Verified 07/12/19 19:14 [From Dilaudid] morphine Allergy Severe ANAPHYLAXIS Verified 07/12/19 19:14 vancomycin Allergy ANAPHYLAXIS Verified 07/12/19 19:14 - Active Medications Active Medications: Current Medications Acetaminophen (Tylenol 325mg) 650 mg PO Q6H PRN PRN Reason: PAIN - MILD(1-4)/FEVER Hydrocodone Bitart/Acetaminophen ([place] 5mg/325mg) 1 each PO Q6H PRN PRN Reason: PAIN - MOD TO SEVERE (5-10) Last Admin: 07/12/19 23:48 Dose: 1 each Documented by: Sodium Chloride () 1,000 mls @ 100 mls/hr IV .Q10H PRN PRN Reason: LARGE VOLUME IV Last Admin: 07/13/19 07:41 Dose: 100 mls/hr Documented by: Linezolid (Zyvox) 600 mg in 300 mls @ 300 mls/hr IVPB Q12H AMNA Last Admin: 07/13/19 07:52 Dose: 300 mls/hr Documented by: Venlafaxine HCl (Effexor Xr) 37.5 mg PO BID [facility] Last Admin: 07/12/19 22:27 Dose: 37.5 mg Documented by: Physical Exam - Vital Signs Vital Signs: Vital Signs - Last 24 Hrs Temp Pulse Pulse Resp BP BP BP 07/13/19 07:45 98.1 F 76 16 90/56 07/13/19 05:53 97.9 F 56 L 16 112/42 07/12/19 22:00 97.8 F 70 16 116/66 07/12/19 18:05 98.1 F 64 16 108/64 07/12/19 13:21 98.1 F 77 18 108/74 Pulse Ox 07/13/19 07:45 98 07/13/19 05:53 95 07/12/19 22:00 70 L 07/12/19 18:05 98 07/12/19 13:21 98 - General General Appearance: Alert, Oriented x3, Cooperative, No acute distress Limitations: No limitations - Head Head exam: Atraumatic, Normocephalic, Normal inspection - Eye Eye exam: Normal appearance - Neck Neck exam: Normal inspection, Full ROM. negative: Tenderness - Respiratory Respiratory exam: Normal lung sounds bilaterally. negative: Rales, Respiratory distress, Rhonchi, Stridor, Wheezes - Cardiovascular Cardiovascular Exam: Regular rate, Normal rhythm, Normal heart sounds Peripheral Pulses: 2+: Radial (R), Radial (L) - GI/Abdominal GI/Abdominal exam: Soft, Normal bowel sounds. negative: Tenderness - Rectal Rectal exam: Deferred - exam: Deferred - Extremities Extremities exam: Normal capillary refill, Tenderness. negative: Full ROM (decreased ROM fingers, improving since admission) - Back Back exam: Reports: Normal inspection, Full ROM. Denies: Muscle spasm, Rash noted, Tenderness - Neurological Neurological exam: Alert, Normal gait, Oriented X3 - Psychiatric Psychiatric exam: Normal affect, Normal mood - Skin Skin exam: Dry, Erythema (skin marker used to draw borders), Normal color, Warm Results - Labs Result Diagrams: 07/13/19 06:05 07/13/19 06:05 Labs Last 24 Hours: Laboratory Results - last 24 hr 07/12/19 07/12/19 07/12/19 14:24 14:24 15:30 WBC 11.0 RBC 4.53 Hgb 14.2 Hct 42.4 MCV 93.6 MCH 31.3 MCHC 33.5 RDW 13.0 Plt Count 290 MPV 9.2 Gran % 73.0 Lymphocytes % 20.2 Monocytes % 5.6 Eosinophils % 1.0 Basophils % 0.2 Absolute Neutrophils 8.04 Sodium 138 Potassium 3.8 Chloride 100 Carbon Dioxide 25.0 Anion Gap 13.0 BUN 15 Creatinine 0.9 Estimated GFR > 60 Random Glucose 123 H Calcium 9.7 Urine Color Yellow Urine Appearance Clear Urine pH 6.0 Ur Specific [place] <= 1.005 Urine Protein Negative Urine Glucose (UA) Negative Urine Ketones Negative Urine Blood Trace-i Urine Nitrite Negative Urine Bilirubin Negative Urine Urobilinogen 0.2 Ur Leukocyte Esterase Negative Urine RBC 0 - 2 Urine WBC None seen Ur Epithelial Cells 0 - 2 Urine Bacteria None seen Vancomycin Trough 07/13/19 07/13/19 07/14/19 06:05 06:05 05:30 WBC 7.7 RBC 4.09 Hgb 12.7 Hct 38.3 MCV 93.6 MCH 31.1 MCHC 33.2 RDW 12.9 Plt Count 240 MPV 9.1 Gran % 67.2 Lymphocytes % 24.6 Monocytes % 6.6 Eosinophils % 1.3 Basophils % 0.3 Absolute Neutrophils 5.16 Sodium 141 Potassium 4.0 Chloride 108 H Carbon Dioxide 22.0 Anion Gap 11.0 BUN 12 Creatinine 0.9 Estimated GFR > 60 Random Glucose 120 H Calcium 8.8 Urine Color Urine Appearance Urine pH Ur Specific [place] Urine Protein Urine Glucose (UA) Urine Ketones Urine Blood Urine Nitrite Urine Bilirubin Urine Urobilinogen Ur Leukocyte Esterase Urine RBC Urine WBC Ur Epithelial Cells Urine Bacteria Vancomycin Trough Cancelled VTE H&P Assessment - Risk for VTE Risk for VTE: Yes Risk Level: Moderate Risk Assessment Date: 07/13/19 Risk Assessment Time: 08:45 VTE Orders Placed or Will Be Placed: No VTE Reason for No Prophylaxis: Contraindicated (possible surgery) Plan - Inpatient Certification Inpatient Certification: Admit to inpatient care: Based on my medical assessment, after consideration of patient's risk factors (age, co-morbidities and patient presenting symptoms and acuity), I expect that this patient will remain in the hospital greater than or equal to two midnights and that the services needed warrant inpatient care because: Patient Risk Factors: [] Estimated length of stay: [] The patient may reasonably be expected to be discharged or transferred to a hospital within 96 hours after admission to [facility]. Services needed: [] Post hospital care (if known): [] I certify that my determination is in accordance with my understanding of Medicare requirements for reasonable and necessary inpatient services. 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 Was already on PO Augmentin for previous bite and still had increased s/sx of infection -PO Augmentin stopped -IV Clinda 600mg in ER, discontinued per Dr Durand hand surgeon at [facility] -Recommend IV Vanco, but patient unable to tolerate d/t previous reaction while taking -IV Linezolid (Zyvox) 600mg Q12H (monitoring for serotonin syndrome d/t pts home Effexor) -Skin marker with borders drawn to monitor -Remains Afebrile -CMP unremarkable -CBC results WNL: WBC 11 >> 7.7 -IV NS 125 ml/hr, increased to 150 d/t BP 90/56 -[place] PO ordered upon transfer to floor. Added IV Toradol and Ofirmev -NPO for possibility of transfer for surgery (2) DVT prophylaxis Current Visit: Yes Status: Acute Base Code: Z29.9 - ENCOUNTER FOR PROPHYLACTIC MEASURES, UNSPECIFIED Comment: 07/13/19: -Nursing to encourage ambulation while in room -SCD while in bed -Pharmacological therapy contraindicated d/t possibility for surgery (3) Full code status Current Visit: Yes Status: Acute Base Code: Z78.9 - OTHER SPECIFIED HEALTH STATUS Comment: 07/13/19: -Full code status this admission
[2019-07-13] MEDS: ACETAMINOPHEN 1,000 MG/100 ML BTL IVPB SCH ×2 (09:28→17:41)
[2019-07-13] MEDS: VENLAFAXINE ER 37.5 MG CAPSULE PO SCH ×2 (09:28→23:13)
[2019-07-14] MEDS: ACETAMINOPHEN 1,000 MG/100 ML BTL IVPB SCH ×3 (01:15→09:25)
[2019-07-14] MEDS: 0.9 % SODIUM CHLORIDE 1000ML 1,000 ML IV PRN (03:33)
[2019-07-14 06:11] LABS: ABSOLUTE NEUTROPHIL COUNT 3.47; BASO % 0.3 % (0-6); EOS % 2.9 % (0-6); GRAN % 53.8 % (47-80); HEMATOCRIT 38.9 % (35.0-47.0); HEMOGLOBIN 12.7 gm/dl (11.6-16.0); LYMPH % 34.6 % (16-45); MEAN CELL VOLUME 94.2 fl (81-97); MEAN CORPUSCULAR HEMOGLOBIN 30.8 pg (27-33); MEAN CORPUSCULAR HGB CONC 32.6 g/dl (32-36); MEAN PLATELET VOLUME 9.2 fl (7.4-10.4); MONO % 8.4 % (0-9); PLATELET COUNT 251 K/uL (130-400); RED BLOOD COUNT 4.13 M/uL (3.80-5.40); RED CELL DISTRIBUTION WIDTH 12.8 % (11.5-14.5); WHITE BLOOD COUNT W/O DIFF 6.5 K/uL (4.2-12.2)
[2019-07-14] MEDS: ZYVOX (LINEZOLID) 600MG/300 ML 600 MG/300 ML BAG IVPB SCH (08:26)
--- NOTE | 2019-07-14 09:32 | Discharge Summary ---
Providers Discharge Summary Date: 07/14/19 Date of admission: 07/12/19 18:01 Expected Date of Discharge: 07/14/19 Attending physician: ARJUN GUTIERREZ Primary care physician: Parul Dennis N.P. Physical Exam - Vital Signs Vital Signs: Vital Signs - Last 24 Hrs Temp Pulse Resp BP Pulse Ox 07/14/19 08:21 98.1 F 69 16 107/60 98 07/14/19 04:00 97.4 F L 64 16 90/47 96 07/13/19 23:21 98.0 F 97 H 16 108/63 97 07/13/19 19:54 98.0 F 71 16 101/52 96 07/13/19 16:18 77 16 105/61 99 07/13/19 12:45 98.4 F 65 16 95/63 100 - General General Appearance: Alert, Oriented x3, Cooperative, No acute distress Limitations: No limitations - Head Head exam: Atraumatic, Normocephalic, Normal inspection - Neck Neck exam: Normal inspection, Full ROM. negative: Tenderness - Respiratory Respiratory exam: Normal lung sounds bilaterally. negative: Rales, Respiratory distress, Rhonchi, Stridor, Wheezes - Cardiovascular Cardiovascular Exam: Regular rate, Normal rhythm, Normal heart sounds Peripheral Pulses: 2+: Radial (R), Radial (L) - GI/Abdominal GI/Abdominal exam: Soft. negative: Tenderness - Rectal Rectal exam: Deferred - exam: Deferred - Extremities Extremities exam: Normal capillary refill, Tenderness. negative: Full ROM (decreased ROM fingers, continues to improve), Pedal edema Image of Hand: 1 - puncture 2 - puncture 3 - old puncture, healing 4 - redness line - Back Back exam: Reports: Normal inspection, Full ROM. Denies: Muscle spasm, Rash noted, Tenderness - Neurological Neurological exam: Alert, Normal gait, Oriented X3 - Psychiatric Psychiatric exam: Normal affect, Normal mood - Skin Skin exam: Dry, Erythema (skin marker used to draw borders, erythema receding), Warm. negative: Normal color Hospitalization - Hospitalization Admission Diagnosis: flexor tenosynovitis, cat bite infection - Problem List/Discharge Diagnosis (1) Cat bite of right hand with infection Current Visit: Yes Status: Acute Discharge Diagnosis: Encounter type: initial encounter Qualified Code(s): S61.451A - Open bite of right hand, initial encounter; L08.9 - Local infection of the skin and subcutaneous tissue, unspecified; W55.01XA - Bitten by cat, initial encounter Base Code: S61.451A - OPEN BITE OF RIGHT HAND, INITIAL ENCOUNTER; L08.9 - LOCAL INFECTION OF THE SKIN AND SUBCUTANEOUS TISSUE, UNSP; W55.01XA - BITTEN BY CAT, INITIAL ENCOUNTER Comment: 07/14/19: -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 Was already on PO Augmentin for previous bite and still had increased s/sx of infection -PO Augmentin stopped -IV Clinda 600mg in ER, discontinued per Dr Durand hand surgeon at [facility] -Recommend IV Vanco, but patient unable to tolerate d/t previous reaction while taking -IV Linezolid (Zyvox) 600mg Q12H (monitoring for serotonin syndrome d/t pts home Effexor), will D/C on PO Linezolid 600mg x 8.5 more days for a total of 10 days -Skin marker with borders drawn to monitor, erythema receding and limited to right middle/third finger only now -Remains Afebrile -CMP unremarkable -CBC results WNL: WBC 11 >> 7.7 >> 6.5 -IV NS 125 ml/hr, increased to 150 d/t BP 90/56, improved 100's/50's now -[place] PO ordered upon transfer to floor. Added IV Toradol and Ofirmev sched Q6H. Will D/C with OTC Tyl/Motrin p/pt preference. -Regular diet added 07/13/19 for improvement of erythema, decreased possibility of surgery (2) DVT prophylaxis Current Visit: Yes Status: Acute Base Code: Z29.9 - ENCOUNTER FOR PROPHYLACTIC MEASURES, UNSPECIFIED Comment: 07/14/19: -Nursing to encourage ambulation while in room, independent, no limitations on ambulation -SCD while in bed (3) Full code status Current Visit: Yes Status: Acute Base Code: Z78.9 - OTHER SPECIFIED HEALTH STATUS Comment: 07/14/19: -Full code status this admission - Hospitalization Course Disposition: Home, Self-Care Hospital Course: 07/13/19: Pt presented to ER 07/12/19 for cat bite to right middle finger/hand. 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 Patient experiencing symptoms of infection despite PO antibiotic therapy and came in for evaluation. Dr Whitaker discussed case with Dr Durand at [facility] and his recommendation was IV Vanco to cover possibility of MRSA, if no clinical improvement or worsening call him for consult and possible transfer to [facility] for surgery. Borders of erythema/swelling drawn with skin marker to hand. PCP: Parul Dennis ED Course: Vital Signs Temp Pulse Pulse Resp BP BP BP 07/13/19 07:45 98.1 F 76 16 90/56 07/13/19 05:53 97.9 F 56 L 16 112/42 07/12/19 22:00 97.8 F 70 16 116/66 07/12/19 18:05 98.1 F 64 16 108/64 07/12/19 13:21 98.1 F 77 18 108/74 Pulse Ox 07/13/19 07:45 98 07/13/19 05:53 95 07/12/19 22:00 70 L 07/12/19 18:05 98 07/12/19 13:21 98 Intake & Output 07/11/19 07/12/19 07/13/19 07/14/19 06:59 06:59 06:59 06:59 Intake Total 1604 Balance 1604 Weight 186 lb 8 oz Intake: IV 1604 Oral 0 Other: Weight Measurement Method Standing Scale Laboratory 07/14/19 07/13/19 07/13/19 05:30 06:05 06:05 WBC 7.7 RBC 4.09 Hgb 12.7 Hct 38.3 MCV 93.6 MCH 31.1 MCHC 33.2 RDW 12.9 Plt Count 240 MPV 9.1 Gran % 67.2 Lymphocytes % 24.6 Monocytes % 6.6 Eosinophils % 1.3 Basophils % 0.3 Absolute Neutrophils 5.16 Sodium 141 Potassium 4.0 Chloride 108 H Carbon Dioxide 22.0 Anion Gap 11.0 BUN 12 Creatinine 0.9 Estimated GFR > 60 Random Glucose 120 H Calcium 8.8 Urine Color Urine Appearance Urine pH Ur Specific [place] Urine Protein Urine Glucose (UA) Urine Ketones Urine Blood Urine Nitrite Urine Bilirubin Urine Urobilinogen Ur Leukocyte Esterase Urine RBC Urine WBC Ur Epithelial Cells Urine Bacteria Vancomycin Trough Cancelled 07/12/19 07/12/19 07/12/19 15:30 14:24 14:24 WBC 11.0 RBC 4.53 Hgb 14.2 Hct 42.4 MCV 93.6 MCH 31.3 MCHC 33.5 RDW 13.0 Plt Count 290 MPV 9.2 Gran % 73.0 Lymphocytes % 20.2 Monocytes % 5.6 Eosinophils % 1.0 Basophils % 0.2 Absolute Neutrophils 8.04 Sodium 138 Potassium 3.8 Chloride 100 Carbon Dioxide 25.0 Anion Gap 13.0 BUN 15 Creatinine 0.9 Estimated GFR > 60 Random Glucose 123 H Calcium 9.7 Urine Color Yellow Urine Appearance Clear Urine pH 6.0 Ur Specific [place] <= 1.005 Urine Protein Negative Urine Glucose (UA) Negative Urine Ketones Negative Urine Blood Trace-i Urine Nitrite Negative Urine Bilirubin Negative Urine Urobilinogen 0.2 Ur Leukocyte Esterase Negative Urine RBC 0 - 2 Urine WBC None seen Ur Epithelial Cells 0 - 2 Urine Bacteria None seen Vancomycin Trough Past Surgical History Date/Surgery appendectomy 2015 nose surgery uterine ablation gallbladder EGD with dil Past Medical History Hx Respiratory Disorders Yes Comment: allergies Hx Cardiovascular Disorders Yes Hx Chest Pain Yes Hx Deep Vein Thrombosis No Comment: high cholesterol is to follow up with Hx Neurological Disorders No Hx of Migraines Yes: occular-occ Hx Gastrointestinal Disorders Yes Hx Gastroesophageal Reflux Yes Comment: hx of Gallstones, dysphagia Hx Genitourinary Disorders No Comment: uterine ablation Hx Endocrine Disorders No Hx of Immunosuppressed Yes: see comment Hx Musculoskeletal Disorders Yes Comment: new finding: slight scolisis Hx Psychiatric Problems Yes Comment: PTSD Hx Hematology/Oncology Disorders No History of multi drug resistant No infection History of exposure to TB No History of positive TB test No History of C-Difficile No Comment sjogrens syndrome Hx Influenza Vaccination No Smoking Status Smoking Status Never smoker Family Medical History Any Significant Family Hx? Yes Hx Cancer Grandparents * Cancer Comment: breast and lung Hx Diabetes Mother,Children Hx. Respiratory Disorders Grandparents * Respiratory Disorders Comment: lung cancer Hx Stroke Grandparents Skin Risk Assessment Scale Sensory Perception No Impairment Moisture Risk Rarely Moist Activity Risk Walks Frequently Mobility Risk No Limitations Nutrition Risk Excellent Friction & Shear Risk No Apparent Problem Skin Risk Total Score (points) 23 Skin Risk Evaluation No Risk Wound Present on Admission Wound present upon admission? Yes Medications Hydrocodone Bitart/Acetaminophen ([place] 5mg/325mg) 1 each PO Q6H PRN PRN Reason: PAIN - MOD TO SEVERE (5-10) Linezolid (Zyvox) 600 mg in 300 mls @ 300 mls/hr IVPB Q12H AMNA Acetaminophen (Ofirmev) 1,000 mg in 100 mls @ 400 mls/hr IVPB Q6H AMNA Sodium Chloride () 1,000 mls @ 125 mls/hr IV .Q8H PRN Ketorolac Tromethamine (Toradol) 30 mg IVP Q8H PRN PRN Reason: PAIN - MILD TO MODERATE (1-7) Venlafaxine HCl (Effexor Xr) 37.5 mg PO BID AMNA Problems Cat bite of right hand with infection (Acute) S61.451A, L08.9, W55.01XA Flexor tenosynovitis 07/13/19: Patient awake and using cell phone upon entry to room. Patient A&Ox4. Patient reports improvement since yesterday. She is able to touch finger tips to thumb, but still cannot make a fist with the right hand. Denies numbness/tingling. Cap refill WNL. Remains afebrile and WBC WNL still. Erythema does not extend past the skin marker borders and the erythema is receding at the proximal line drawn. Patient will be changed to regular diet and we will keep her through at least tomorrow for further IV antibiotics and monitoring of the wound. Patient agreeable to POC and all questions answered. 07/14/19: Patient sleeping upon arrival to room. Patient remains afebrile since admission, lab work still unremarkable, WBC WNL. Erythema has receded to middle finger/MCP joint only now. Puncture wounds appear to be scabbed over with no drainage. Patient able to touch finger tips still, ROM improving. Patient denies pain. Well controlled with Ofirmev during hospital stay. Patient wishes to be D/C on oral antibiotics and feels she is well enough to go home today. Patient informed she will need to follow up with PCP in approx. 10 days to check on infection. Patient agreeable to POC. Procedures: Imaging and X-Rays 07/12/19 13:56 HAND, RIGHT 3 VIEWS [RAD] Stat Abnormal Labs: Abnormal Lab Results 07/12/19 07/13/19 Range/Units 14:24 06:05 Chloride 108 H (98-107) mmol/L Random Glucose 123 H 120 H (74-109) mg/dL Condition at Discharge: (2) Stable VTE Discharge VTE Reason For No Overlap Therapy: Not Indicated Discharge Medications - Discharge Medications Prescriptions: Linezolid 600 mg PO BID #17 tablet Home Medications: Ambulatory Orders Linezolid 600 mg PO BID #17 tablet 07/14/19 [Last Taken Unknown] Discharge Plan - Discharge Instructions Activity at Discharge: Increase Activity as Tolerated Diet at Discharge: Advance to Usual Diet Instructions: Animal Bite (DC), Serotonin Syndrome (DC) Additional Instructions: Follow-up with Parul Dennis PCP in 7-10 days for hospital follow-up Continue Zyvox (Linezolid) twice daily with next dose due tonight Keep wound clean/dry with antibacterial soap & water Alternate Tylenol/Motrin at home for pain Keep extremity elevated while in bed Watch for signs of worsening infection: fevers, increased swelling, redness, drainage, decreased ROM hand and return to ER if any of these occur Quality Measures - Quality Measures Quality Measures: Documentation of Current Medications in Medical Record, Screening for High Blood Pressure and F/U Documented - Current Medications Quality Measure: Measure #130: Documentation of Current Medications Documentation of Current Medications: <Current Medications Documented/Reviewed> [G8427] - Blood Pressure Screening Quality Measure: Screening for High Blood Pressure and Follow-Up Documented Does Patient Have Any of the Following: No Blood Pressure Classification: Normal BP Reading Systolic Measurement: 108 Diastolic Measurement: 74 Screening for High Blood Pressure: < Normal BP, F/U Not Required > [G8783] - Elder Abuse Suspicion Index EASI Reference Information: Gia UMAÑA, Vanessa C, Elisha D, Pedro Alejandro.Development and validation of a tool to assist physicians identification of elder abuse: The Elder Abuse Suspicion Index (EASI ). Journal of Elder Abuse and Neglect, 2008; 20 (3): 276-300.
[2019-07-14] MEDS: VENLAFAXINE ER 37.5 MG CAPSULE PO SCH (10:06)
== END 2019-07-14 13:13 | disposition home or self-care (01) | DRG 558 ==
LOC: ER 13:02 → MEDSURG 18:01
PROVIDERS: ADMIT Internal Medicine; ATTEND Internal Medicine
DX: M65.841 Other synovitis and tenosynovitis, right hand (principal); S61.451A Open bite of right hand, initial encounter; L08.9 Local infection of the skin and subcutaneous tissue, unspecified; W55.01XA Bitten by cat, initial encounter; E78.00 Pure hypercholesterolemia, unspecified; F43.10 Post-traumatic stress disorder, unspecified; M35.00 Sjogren syndrome, unspecified
CPT/HCPCS: 80048; 81001; 85025; 87040; 96365; 96366; 99223; 99239; 99285; J3370